=== PATIENT | female | born 1990 | race Caucasian/White ===

== ENCOUNTER 2016-08-07 19:25 | Observation (INO) | payer MEDICAID, OTHER ==
[~2016-08-07] VITALS: Ht 167.6 cm; Wt 74.4 kg
[~2016-08-07 19:25] MED LIST: ADV250 IH; PANT40TA25 PO
[2016-08-07 20:20] VITALS: BP 112/61
[2016-08-07 20:36] LABS: APPEARANCE,URINE CLOUDY (CLEAR); GLUCOSE, URINE (UA) NEGATIVE (NEGATIVE); KETONES,URINE NEGATIVE (NEGATIVE); LEUKOCYTE ESTERASE ,URINE TRACE (NEGATIVE); OCCULT BLOOD,URINE NEGATIVE (NEGATIVE); PROTEIN,URINE NEGATIVE (NEGATIVE)
[2016-08-07 20:37] LABS: ADD UA MICROSCOPIC YES
[2016-08-07] MEDS ORDERED: IRON-24 PO (20:37)
[2016-08-07] MEDS ORDERED: LEVO100 PO (20:37)
[2016-08-07] MEDS ORDERED: PREN1TAB80 PO (20:37)
[2016-08-07 20:47] LABS: SQUAMOUS EPITHELIAL CELL,UR Many /LPF (None Seen)
[2016-08-07 20:49] LABS: CALCIUM OXALATE CRYSTALS,UR Few /LPF (None Seen)
[2016-08-07 20:50] LABS: RBC,URINE 0-2 /HPF (0-2)
[2016-08-07] MEDS ORDERED: RINGERS SOLUTION,LACTATED 1,000 ML IV SCH (21:01)
[2016-08-07] MEDS ORDERED: ACETAMINOPHEN/CODEINE 300-30 MG TABLET PO PRN (21:15)
[2016-08-07] MEDS ORDERED: CefTRIAXone 1 GM/DEXTROSE 50 ML IV ONE (21:15)
[2016-08-14 14:23] LABS: URIN CARBOXY-THC GC/MS CONFIRM 88 ng/mL (Cutoff=10)
== END 2016-08-08 00:17 | disposition home or self-care (01) ==
LOC: 4S 19:25
PROVIDERS: ADMIT Obstetrics & Gynecology; ATTEND Obstetrics & Gynecology
DX: O26.892 Other specified pregnancy related conditions, second trimester (principal); R10.2 Pelvic and perineal pain; R10.9 Unspecified abdominal pain; Z3A.20 20 weeks gestation of pregnancy
CPT/HCPCS: 59025; 76815; 80307 ×8; 80349; 81001; 87086; 96365; G0378; J0696; J7120; 96360; 96361

== ENCOUNTER 2016-10-28 16:45 | Observation (INO) | payer OTHER ==
[~2016-10-28 16:45] MED LIST changes: +IRON-24 PO; +LEVO100 PO; +PREN1TAB80 PO
[2016-10-28 17:54] VITALS: BP 109/63
== END 2016-10-28 19:00 | disposition home or self-care (01) ==
LOC: 4S 16:45
PROVIDERS: ADMIT Obstetrics & Gynecology; ATTEND Obstetrics & Gynecology
DX: O26.893 Other specified pregnancy related conditions, third trimester (principal); M54.5 Low back pain; O62.9 Abnormality of forces of labor, unspecified; O60.03 Preterm labor without delivery, third trimester; O99.513 Diseases of the respiratory system complicating pregnancy, third trimester; J45.909 Unspecified asthma, uncomplicated; Z3A.31 31 weeks gestation of pregnancy
CPT/HCPCS: 59025; 82731; G0378